=== PATIENT | female | born 2000 | race Hispanic/Latino ===

== ENCOUNTER 2021-05-19 01:26 | Emergency (ER) | payer OTHER ==
[2021-05-19] MEDS ORDERED: LIDOCAINE 1% W/EPI 1:100,000 MDV 20 ML VIAL ONE (02:43)
[2021-05-19] MEDS ORDERED: TETANUS & DIPHTHERIA TOX,ADULT 0.5 ML VIAL ONE (02:43)
--- NOTE | 2021-05-19 02:43 | EDPHYS ---
Physician Documentation [facility] Name: Junaid Ortiz Age: 20 yrs Sex: Female : 2000 Arrival Date: 05/19/2021 Time: 01:29 Bed 23 Private MD: ED Physician Nael Figueroa HPI: 05/19 01:50 This 20 yrs old Female presents to ER via Ambulatory with complaints of Arm cp Injury. 01:50 The patient or guardian complains of a laceration. The complaints affect the left cp tricep. 01:50 Context: resulted from broken glass. cp 01:50 Onset: The symptoms/episode began/occurred just prior to arrival. Treatment prior to cp arrival includes: no previous treatment. Associated signs and symptoms: The patient has no apparent associated signs or symptoms. 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 - Social history:: Smoking status: Reported history of juuling and/or vaping. ROS: 01:55 Constitutional: Negative for fever. cp 01:55 Skin: Positive for laceration(s), of the left tricep. 01:55 Neuro: Negative for numbness, weakness. 01:55 Psych: Negative for suicide gesture, suicidal ideation. 01:55 All other systems are negative. Exam: 02:00 Constitutional: The patient appears in no acute distress, alert, awake, non-toxic, well cp developed, well nourished. 02:00 Musculoskeletal/extremity: Extremities: noted in the left arm: There is no evidence of cp decreased ROM, Perfusion: the extremity is normally perfused throughout, the left arm Sensation intact. 02:00 Skin: injury, laceration(s), the wound is approximately 3.5 cm(s), of the left tricep, that can be described as clean, no foreign body, linear, with mild bleeding. Vital Signs: 01:41 BP 121 / 82; Pulse 72; Resp 16 S; Temp 98.4(O); Pulse Ox 100% on R/A; Weight 44.45 kg bb (R); Height 5 ft. 2 in. (157.48 cm) (R); Pain 0/10; 02:35 BP 117 / 70; Pulse 60; Resp 16; Temp 97.0; Pulse Ox 100% ; Pain 0/10; dc2 01:41 Body Mass Index 17.92 (44.45 kg, 157.48 cm) bb Laceration: 02:50 Wound Repair of 3.5cm ( 1.4in ) subcutaneous laceration to left tricep. Linear shaped.. cp Distal neuro/vascular/tendon intact. Anesthesia: Wound infiltrated with 4 mls of 1% lidocaine w/ Epi. Wound prep: Moderate cleansing by me, Wound irrigation by me. Skin closed with 1 4-0 Vicryl using running sutures and sterile technique. Dressed with Bacitracin, 4x4's. Patient tolerated well. MDM: 01:40 Patient medically screened. cp 02:42 Data reviewed: vital signs, nurses notes, and as a result, I will discharge patient. cp 02:42 Counseling: I had a detailed discussion with the patient and/or guardian regarding: the cp historical points, exam findings, and any diagnostic results supporting the discharge/admit diagnosis, to return to the emergency department if symptoms worsen or persist or if there are any questions or concerns that arise at home. Response to treatment: the patient's symptoms have markedly improved after treatment, and as a result, I will discharge patient. 05/19 01:43 Order name: Dressing - Wound; Complete Time: 02:50 cp 05/19 01:43 Order name: Gloves, Sterile; Complete Time: 02:25 cp 05/19 01:43 Order name: Setup Suture Tray; Complete Time: 02:25 cp Administered Medications: 02:15 Drug: Lidocaine-Epinephrine -1%: (1:100,000) 10 ml {Note: FOR PROVIDER AT BEDSIDE FOR dc2 LEFT ARM.} Volume: 20 ml; Route: Infiltration; 02:50 Follow up: Response: No adverse reaction dc2 02:34 Drug: Tetanus-Diphtheria Toxoid Adult 0.5 ml {Manager Port: [employer]. Exp: dc2 11/16/2022. Lot #: [id number]. } Route: IM; Site: right deltoid; 02:50 Follow up: Response: No adverse reaction dc2 Disposition: 02:45 Chart complete. cp 07:01 Co-signature as Attending Physician, Nael Figueroa MD. [facility] Disposition Summary: 05/19/21 02:42 Discharge Ordered Location: Home cp Problem: new cp Symptoms: have improved cp Condition: Stable cp Diagnosis - Laceration without foreign body of left upper arm, initial encounter cp Followup: cp - With: Private Physician - When: 7 - 10 days - Reason: Staple/Suture removal Discharge Instructions: - Discharge Summary Sheet cp - Laceration Care, Adult cp Forms: - Medication Reconciliation Form cp - Thank You Letter cp - Antibiotic Education cp - Prescription Opioid Use cp Signatures: Flavia Farley RN RN Jordin Mace PA PA cp Nael Figueroa MD MD [facility] Tanisha, FLORY Xiong RN dc2 Corrections: (The following items were deleted from the chart) 04:17 02:42 Laceration without foreign body of right upper arm, initial encounter cp cp 04:21 01:30 Skin: Positive for laceration(s), of the left tricep, cp cp 04:21 01:30 Constitutional: Negative for fever, cp cp 04:21 01:30 Neuro: Negative for numbness, weakness, cp cp 04:21 01:30 Psych: Negative for suicide gesture, suicidal ideation, cp cp 04:21 01:30 All other systems are negative, cp cp
--- NOTE | 2021-05-19 02:43 | ER ---
Nurse's Notes [facility] Name: Junaid Ortiz Age: 20 yrs Sex: Female : 2000 Arrival Date: 05/19/2021 Time: 01:29 Bed 23 Private MD: Diagnosis: Laceration without foreign body of left upper arm, initial encounter Presentation: 05/19 01:41 Chief complaint: Patient states: about an hour ago she cut her left upper arm on glass bb accidently while reaching through a broken window. Coronavirus screen: At this time, the client does not indicate any symptoms associated with coronavirus-19. Ebola Screen: No symptoms or risks identified at this time. Initial Sepsis Screen: Does the patient meet any 2 criteria? No. Patient's initial sepsis screen is negative. Does the patient have a suspected source of infection? No. Patient's initial sepsis screen is negative. Risk Assessment: Do you want to hurt yourself or someone else? Patient reports no desire to harm self or others. Onset of symptoms was May 19, 2021. 01:41 Method Of Arrival: Ambulatory bb 01:41 Acuity: ELLA 4 bb Triage Assessment: 01:45 Neuro: No deficits noted. dc2 01:45 General: Behavior is calm, cooperative. dc2 02:29 General: Appears in no apparent distress. comfortable, slender, well groomed. Pain: dc2 Denies pain. Derm: Skin Laceration to posterior left upper arm. Musculoskeletal: No deficits noted. Injury Description: Laceration sustained to left upper posterior arm. 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 - Social history:: Smoking status: Reported history of juuling and/or vaping. Screenin:45 Abuse screen: Denies threats or abuse. Denies injuries from another. Nutritional dc2 screening: No deficits noted. Tuberculosis screening: No symptoms or risk factors identified. Never had TB. Risk factors: None. 01:45 Fall Risk None identified. dc2 Assessment: 02:32 Reassessment: Patient and/or family updated on plan of care and expected duration. Pain dc2 level reassessed. Provider to bedside for suturing of laceration to left upper arm. Patient denies pain at this time. Vital Signs: 01:41 BP 121 / 82; Pulse 72; Resp 16 S; Temp 98.4(O); Pulse Ox 100% on R/A; Weight 44.45 kg bb (R); Height 5 ft. 2 in. (157.48 cm) (R); Pain 0/10; 02:35 BP 117 / 70; Pulse 60; Resp 16; Temp 97.0; Pulse Ox 100% ; Pain 0/10; dc2 01:41 Body Mass Index 17.92 (44.45 kg, 157.48 cm) bb ED Course: 01:29 Patient arrived in ED. ja2 01:38 Jordin Liu PA is PHCP. cp 01:38 Nael Figueroa MD is Attending Physician. cp 01:43 Triage completed. bb 01:44 Arm band placed on Patient placed in an exam room, on a stretcher, on pulse oximetry. bb 01:45 Patient has correct armband on for positive identification. Bed in low position. Call dc2 light in reach. Side rails up X 1. Pulse ox on. NIBP on. 01:45 Door closed. Lights dimmed. dc2 01:45 No provider procedures requiring assistance completed. dc2 02:14 Inga Garay RN is Primary Nurse. dc2 02:50 Patient did not have IV access during this emergency room visit. 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 Exp: dc2 11/16/2022. Lot #: [id number]. } Route: IM; Site: right deltoid; 02:50 Follow up: Response: No adverse reaction dc2 Outcome: 02:42 Discharge ordered by . cp 02:50 Discharged to home ambulatory. dc2 02:50 Condition: good 02:50 Discharge instructions given to patient, Instructed on discharge instructions, follow dc2 up and referral plans. Demonstrated understanding of instructions, follow-up care. 03:01 Patient left the ED. dc2 04:27 Patient left the ED. renee Signatures: Flavia Farley RN RN Jordin Mace PA PA cp Alexander, Jessica ja2 Charters, Denise, RN RN dc2
[2021-05-19 03:11] VITALS: O2SAT 100
[2021-05-19 04:32] VITALS: BP 117/70; TEMP 97
== END 2021-05-19 04:27 | disposition home or self-care (01) ==
LOC: ER 01:26
PROC: 0JQF0ZZ Repair Left Upper Arm Subcutaneous Tissue and Fascia, Open Approach (ICD-10-PCS; principal; 2021-05-19)
DX: S41.112A Laceration without foreign body of left upper arm, initial encounter (principal); W25.XXXA Contact with sharp glass, initial encounter; Z23 Encounter for immunization
CPT/HCPCS: 90471; 90714; 99283

== ENCOUNTER 2021-05-25 20:21 | Emergency (ER) | payer OTHER ==
--- NOTE | 2021-05-25 22:15 | ER ---
Nurse's Notes [facility] Name: Junaid Ortiz Age: 20 yrs Sex: Female : 2000 Arrival Date: 05/25/2021 Time: 20:24 Bed Waiting Private MD: Diagnosis: Suture removal left arm Presentation: 05/25 20:40 Chief complaint: Patient states: Pt was seen in ED about a week for Left upper arm vg1 laceration and was told to come back to get stitches removed. Coronavirus screen: Vaccine status: Patient reports being unvaccinated. Ebola Screen: Patient negative for fever greater than or equal to 101.5 degrees Fahrenheit, and additional compatible Ebola Virus Disease symptoms. Initial Sepsis Screen: Does the patient meet any 2 criteria? No. Patient's initial sepsis screen is negative. Does the patient have a suspected source of infection? No. Patient's initial sepsis screen is negative. Risk Assessment: Do you want to hurt yourself or someone else? Patient reports no desire to harm self or others. Onset of symptoms was May 18, 2021. 20:40 Method Of Arrival: Ambulatory vg1 20:40 Acuity: ELLA 4 vg1 Triage Assessment: 20:44 General: Appears in no apparent distress. comfortable, Behavior is calm, cooperative. vg1 Pain: Denies pain. Historical: - Allergies: 20:44 No Known Allergies; vg1 - Home Meds: 20:44 None [Active]; vg1 - PMHx: 20:44 Hypothyroidism; vg1 - PSHx: 20:44 None; vg1 - Immunization history:: Adult Immunizations up to date, Client reports having NOT received the Covid vaccine. - Social history:: Smoking status: Reported history of juuling and/or vaping. Assessment: 21:05 Reassessment: Stitches removed by Flavia RUTH, pt tolerated well. Site without swelling vg1 or discharge. 21:29 Reassessment: waiting for provider to d/c patient from system. vg1 Vital Signs: 20:40 BP 110 / 74; Pulse 64; Resp 16; Temp 98.2; Pulse Ox 100% ; Weight 44.45 kg; Height 5 vg1 ft. 2 in. (157.48 cm); Pain 0/10; 20:40 Body Mass Index 17.92 (44.45 kg, 157.48 cm) vg1 ED Course: 20:24 Patient arrived in ED. ja2 20:44 Triage completed. vg1 20:44 Arm band placed on. vg1 22:04 Karri Rae MD is Attending Physician. pkl 22:23 Jordin Liu PA is PHCP. cp Administered Medications: No medications were administered Outcome: 21:05 No charge visit due to suture removal. vg1 21:05 Discharged to home ambulatory. vg1 21:05 Condition: stable 22:14 Discharge ordered by . pkl 22:23 Patient left the ED. bb Signatures: Karri Rae MD MD pkFlavia Eisenberg, RN RN bb Jordin Liu PA PA cp Garcia, Victoria, RN RN 1 Jenny Umaña [facility]
--- NOTE | 2021-05-25 22:15 | EDPHYS ---
Physician Documentation [facility] Name: Junaid Ortiz Age: 20 yrs Sex: Female : 2000 Arrival Date: 05/25/2021 Time: 20:24 Bed Waiting Private MD: ED Physician Karri Rae HPI: 05/25 22:05 This 20 yrs old Female presents to ER via Ambulatory with complaints of STITCH pkl REMOVAL. 22:05 The patient has sutures on the left arm. pkl Historical: - Allergies: 20:44 No Known Allergies; vg1 - Home Meds: 20:44 None [Active]; vg1 - PMHx: 20:44 Hypothyroidism; vg1 - PSHx: 20:44 None; vg1 - Immunization history:: Adult Immunizations up to date, Client reports having NOT received the Covid vaccine. - Social history:: Smoking status: Reported history of juuling and/or vaping. ROS: 22:05 Eyes: Negative for injury, pain, redness, and discharge, ENT: Negative for injury, pkl pain, and discharge, Neck: Negative for injury, pain, and swelling, Cardiovascular: Negative for chest pain, palpitations, and edema, Respiratory: Negative for shortness of breath, cough, wheezing, and pleuritic chest pain, Abdomen/GI: Negative for abdominal pain, nausea, vomiting, diarrhea, and constipation, Back: Negative for injury and pain, : Negative for injury, bleeding, discharge, and swelling, Neuro: Negative for headache, weakness, numbness, tingling, and seizure. 22:05 MS/extremity: Positive for laceration, of the left arm. Wound healed. 22:05 Neuro: Negative for altered mental status. Exam: 22:05 Head/Face: Normocephalic, atraumatic. Eyes: Pupils equal round and reactive to light, pkl extra-ocular motions intact. Lids and lashes normal. Conjunctiva and sclera are non-icteric and not injected. Cornea within normal limits. Periorbital areas with no swelling, redness, or edema. ENT: Nares patent. No nasal discharge, no septal abnormalities noted. Tympanic membranes are normal and external auditory canals are clear. Oropharynx with no redness, swelling, or masses, exudates, or evidence of obstruction, uvula midline. Mucous membranes moist. Neck: Trachea midline, no thyromegaly or masses palpated, and no cervical lymphadenopathy. Supple, full range of motion without nuchal rigidity, or vertebral point tenderness. No Meningismus. Chest/axilla: Normal chest wall appearance and motion. Nontender with no deformity. No lesions are appreciated. Cardiovascular: Regular rate and rhythm with a normal S1 and S2. No gallops, murmurs, or rubs. Normal PMI, no JVD. No pulse deficits. Respiratory: Lungs have equal breath sounds bilaterally, clear to auscultation and percussion. No rales, rhonchi or wheezes noted. No increased work of breathing, no retractions or nasal flaring. Abdomen/GI: Soft, non-tender, with normal bowel sounds. No distension or tympany. No guarding or rebound. No evidence of tenderness throughout. Back: No spinal tenderness. No costovertebral tenderness. Full range of motion. Skin: Warm, dry with normal turgor. Normal color with no rashes, no lesions, and no evidence of cellulitis. Neuro: Awake and alert, GCS 15, oriented to person, place, time, and situation. Cranial nerves II-XII grossly intact. Motor strength 5/5 in all extremities. Sensory grossly intact. Cerebellar exam normal. Normal gait. 22:05 Musculoskeletal/extremity: Extremities: grossly normal except: noted in the left arm: laceration healed. Vital Signs: 20:40 BP 110 / 74; Pulse 64; Resp 16; Temp 98.2; Pulse Ox 100% ; Weight 44.45 kg; Height 5 vg1 ft. 2 in. (157.48 cm); Pain 0/10; 20:40 Body Mass Index 17.92 (44.45 kg, 157.48 cm) vg1 Procedures: 22:05 Suture/Staple removal: Removed running sutures, site appears well healed, Patient pkl tolerated well. MDM: 22:05 Data reviewed: vital signs, nurses notes. pkl 22:14 Patient medically screened. pkl Administered Medications: No medications were administered Disposition Summary: 05/25/21 22:14 Discharge Ordered Location: Home pkl Problem: new pkl Symptoms: have improved pkl Condition: Stable pkl Diagnosis - Suture removal left arm pkl Followup: pkl - With: Private Physician - When: 2 - 3 days - Reason: Re-evaluation by your physician Forms: - Medication Reconciliation Form pkl - Thank You Letter pkl - Antibiotic Education pkl - Prescription Opioid Use pkl Signatures: Karri Rae MD MD pkl Kelly Feng RN RN vg1
[2021-05-25 22:29] VITALS: BP 110/74; TEMP 98.2; O2SAT 100
== END 2021-05-25 22:23 | disposition home or self-care (01) ==
LOC: ER 20:21
DX: Z48.02 Encounter for removal of sutures (principal)

== ENCOUNTER → 2023-08-31 | Emergency (ER) | payer OTHER, SELFPAY ==
[~2023-08-31] MED LIST: DERMABOND SKIN ADHESIVE TOP ONE; TDAP (DIPHTH,PERTUSS(ACELL),TET VAC) 0.5 ML VIAL IMVAC ONE
--- NOTE | 2023-08-31 16:49 | EDPHYS ---
Physician Documentation [facility] Name: Junaid Ortiz Age: 22 yrs Sex: Female : 2000 Arrival Date: 08/31/2023 Time: 15:48 Bed 11 Private MD: ED Physician Jordin Satrr HPI: 08/31 16:43 This 22 yrs old Female presents to ER via Ambulatory with complaints of Finger snw Injury. 16:43 The patient or guardian reports a laceration, clean, 3 cm(s), simple. The complaints snw affect the right hand diffusely. Onset: The symptoms/episode began/occurred suddenly, today, and became persistent. Associated signs and symptoms: The patient has no apparent associated signs or symptoms. It is unknown whether or not the patient has had similar symptoms in the past. It is unknown whether or not the patient has recently seen a physician. Historical: - Allergies: 16:24 No Known Allergies; cm10 - PMHx: 16:24 Hypothyroidism; cm10 - Immunization history:: Adult Immunizations up to date, Last tetanus immunization: unknown. - Social history:: Smoking status: Reported history of juuling and/or vaping. ROS: 16:43 Constitutional: Negative for fever, chills, and weight loss, Eyes: Negative for injury, snw pain, redness, and discharge, ENT: Negative for injury, pain, and discharge, Neck: Negative for injury, pain, and swelling, Cardiovascular: Negative for chest pain, palpitations, and edema, Respiratory: Negative for shortness of breath, cough, wheezing, and pleuritic chest pain, Abdomen/GI: Negative for abdominal pain, nausea, vomiting, diarrhea, and constipation, Back: Negative for injury and pain, : Negative for injury, bleeding, discharge, and swelling, MS/Extremity: Negative for injury and deformity, Neuro: Negative for headache, weakness, numbness, tingling, and seizure, Psych: Negative for depression, anxiety, suicide ideation, homicidal ideation, and hallucinations, 16:43 Skin: Positive for laceration(s), of the palmar aspect of distal phalanx of right thumb, Exam: 16:42 Constitutional: This is a well developed, well nourished patient who is awake, alert, snw and in no acute distress. Head/Face: Normocephalic, atraumatic. Eyes: Pupils equal round and reactive to light, extra-ocular motions intact. Lids and lashes normal. Conjunctiva and sclera are non-icteric and not injected. Cornea within normal limits. Periorbital areas with no swelling, redness, or edema. ENT: Nares patent. No nasal discharge, no septal abnormalities noted. Tympanic membranes are normal and external auditory canals are clear. Oropharynx with no redness, swelling, or masses, exudates, or evidence of obstruction, uvula midline. Mucous membranes moist. Neck: Trachea midline, no thyromegaly or masses palpated, and no cervical lymphadenopathy. Supple, full range of motion without nuchal rigidity, or vertebral point tenderness. No Meningismus. Chest/axilla: Normal chest wall appearance and motion. Nontender with no deformity. No lesions are appreciated. Cardiovascular: Regular rate and rhythm with a normal S1 and S2. No gallops, murmurs, or rubs. Normal PMI, no JVD. No pulse deficits. Respiratory: Lungs have equal breath sounds bilaterally, clear to auscultation and percussion. No rales, rhonchi or wheezes noted. No increased work of breathing, no retractions or nasal flaring. Abdomen/GI: Soft, non-tender, with normal bowel sounds. No distension or tympany. No guarding or rebound. No evidence of tenderness throughout. Back: No spinal tenderness. No costovertebral tenderness. Full range of motion. MS/ Extremity: Pulses equal, no cyanosis. Neurovascular intact. Full, normal range of motion. Neuro: Awake and alert, GCS 15, oriented to person, place, time, and situation. Cranial nerves II-XII grossly intact. Motor strength 5/5 in all extremities. Sensory grossly intact. Cerebellar exam normal. Normal gait. Psych: Awake, alert, with orientation to person, place and time. Behavior, mood, and affect are within normal limits. 16:42 Skin: Appearance: normal except for affected area, injury, laceration(s), the wound is approximately 3 cm(s), with a depth of 1 cm(s), of the palmar aspect of distal phalanx of right thumb, Vital Signs: 16:23 BP 114 / 75; Pulse 68; Resp 16; Temp 98.2; Pulse Ox 100% on R/A; Weight 44.45 kg; cm10 Height 5 ft. 2 in. ; Pain 6/10; 16:23 Body Mass Index 17.92 (44.45 kg, 157.48 cm) cm10 16:23 Pain Scale: Adult cm10 MDM: 16:23 Patient medically screened. snw 16:46 Differential diagnosis: contusion, abrasion, laceration. Data reviewed: vital signs, snw nurses notes. I considered the following discharge prescriptions or medication management in the emergency department Medications were administered in the Emergency Department. See MAR. Counseling: I had a detailed discussion with the patient and/or guardian regarding the historical points, exam findings, and any diagnostic results supporting the discharge/admit diagnosis, the need for outpatient follow up, for definitive care, a family practitioner, to return to the emergency department if symptoms worsen or persist or if there are any questions or concerns that arise at home. Special discussion: Based on the history and exam findings, there is no indication for further emergent testing or inpatient evaluation. I discussed with the patient/guardian the need to see the primary care provider for further evaluation of the symptoms. 08/31 16:26 Order name: Wound Care; Complete Time: 17:01 snw 08/31 16:26 Order name: Dermabond; Complete Time: 17:10 snw Administered Medications: 17:01 Drug: Boostrix Tdap IM 0.5 ml IM once; as a single dose Route: IM; Site: right deltoid; hb Disposition Summary: 08/31/23 16:48 Discharge Ordered Notes: Location: Home snw Condition: Stable snw Diagnosis - Laceration without foreign body of right thumb without damage to nail, initial snw encounter Followup: snw - With: Emergency Department - When: As needed - Reason: Worsening of condition Followup: snw - With: Private Physician - When: 1 week - Reason: Recheck today's complaints, Continuance of care, Re-evaluation by your physician Discharge Instructions: - Discharge Summary Sheet snw - Tissue Adhesive Wound Care snw - Laceration Care, Adult snw Forms: - Medication Reconciliation Form snw - Thank You Letter snw - Antibiotic Education snw - Prescription Opioid Use snw - Patient Portal Instructions snw - Leadership Thank You Letter snw - Work release form Signatures: Haritha Blas FNP-C [employer] Bri Mai RN RN hb Fang Telles RN RN cm10 Corrections: (The following items were deleted from the chart) 16:25 16:24 [place] Meds: None; cm10 cm10
--- NOTE | 2023-08-31 16:49 | ER ---
Nurse's Notes [facility] Name: Junaid Ortiz Age: 22 yrs Sex: Female : 2000 Arrival Date: 08/31/2023 Time: 15:48 Bed 11 Private MD: Diagnosis: Laceration without foreign body of right thumb without damage to nail, initial encounter Presentation: 08/31 16:23 Chief complaint: Patient states: Cut thumb on right hand with knife. No bleeding noted cm10 at this time. Coronavirus screen: Vaccine status: Patient reports receiving the 1st dose of the Covid vaccine. Client denies travel out of the [place] in the last 14 days. Ebola Screen: Patient denies travel to an Ebola-affected area in the 21 days before illness onset. No symptoms or risks identified at this time. Initial Sepsis Screen: Does the patient meet any 2 criteria? No. Patient's initial sepsis screen is negative. Does the patient have a suspected source of infection? No. Patient's initial sepsis screen is negative. Risk Assessment: Do you want to hurt yourself or someone else? Patient reports no desire to harm self or others. Onset of symptoms was August 31, 2023. 16:23 Method Of Arrival: Ambulatory cm10 16:23 Acuity: ELLA 4 cm10 Triage Assessment: 16:25 General: Appears in no apparent distress. comfortable, Behavior is calm, cooperative. cm10 Pain: Complains of pain in Thumb on right hand Pain currently is 6 out of 10 on a pain scale. Quality of pain is described as stinging. Neuro: No deficits noted. Level of Consciousness is awake, alert, obeys commands, Oriented to person, place, time, situation. Cardiovascular: No deficits noted. Patient's skin is warm and dry. Respiratory: No deficits noted. Airway is patent Respiratory effort is even, unlabored, Respiratory pattern is regular, symmetrical. GI: No deficits noted. No signs and/or symptoms were reported involving the gastrointestinal system. : No deficits noted. No signs and/or symptoms were reported regarding the genitourinary system. Derm: No deficits noted. No signs and/or symptoms reported regarding the dermatologic system. Skin is intact, Skin is pink, warm \T\ dry. Musculoskeletal: No deficits noted. No signs and/or symptoms reported regarding the musculoskeletal system. Range of motion: intact in all extremities. Injury Description: Laceration sustained to palmar aspect of distal phalanx of right thumb no active bleeding noted at this time. Historical: - Allergies: 16:24 No Known Allergies; cm10 - PMHx: 16:24 Hypothyroidism; cm10 - Immunization history:: Adult Immunizations up to date, Last tetanus immunization: unknown. - Social history:: Smoking status: Reported history of juuling and/or vaping. Screenin:26 [facility] ED Fall Risk Assessment (Adult) History of falling in the last 3 months, cm10 including since admission No falls in past 3 months (0 pts) Confusion or Disorientation No (0 pts) Intoxicated or Sedated No (0 pts) Impaired Gait No (0 pts) Mobility Assist Device Used No (0 pt) Altered Elimination No (0 pt) Score/Fall Risk Level 0 - 2 = Low Risk Oriented to surroundings, Maintained a safe environment, Hourly rounding (assess needs \T\ fall precautionary measures) done. Abuse screen: Denies threats or abuse. Denies injuries from another. Nutritional screening: No deficits noted. Tuberculosis screening: No symptoms or risk factors identified. Assessment: 17:02 Reassessment: Patient appears in no apparent distress at this time. Patient and/or hb family updated on plan of care and expected duration. Pain level reassessed. Patient is alert, oriented x 3, equal unlabored respirations, skin warm/dry/pink. Vital Signs: 16:23 BP 114 / 75; Pulse 68; Resp 16; Temp 98.2; Pulse Ox 100% on R/A; Weight 44.45 kg; cm10 Height 5 ft. 2 in. ; Pain 6/10; 16:23 Body Mass Index 17.92 (44.45 kg, 157.48 cm) cm10 16:23 Pain Scale: Adult cm10 ED Course: 15:50 Patient arrived in ED. ts1 15:56 [facility] Bl[facility]C [facility]. snw 15:56 Jordin Starr MD is Attending Physician. snw 16:24 Triage completed. cm10 16:25 Arm band placed on Patient placed in waiting room. cm10 16:26 Patient has correct armband on for positive identification. Provided Education on: ER cm10 process and procedures.. 17:02 No provider procedures requiring assistance completed. Patient did not have IV access hb during this emergency room visit. Wound care: to laceration located on palmar aspect of distal phalanx of right thumb was cleaned with Hibiclens, Patient tolerated well. Administered Medications: 17:01 Drug: Boostrix Tdap IM 0.5 ml IM once; as a single dose Route: IM; Site: right deltoid; hb Medication: 17:02 Vaccine Information Statement (VIS) provided today. Questions and/or concerns hb addressed. VIS edition date: August 31, 2023. Outcome: 16:48 Discharge ordered by . snw 17:02 Discharged to home ambulatory, with family, hb 17:02 Condition: stable 17:02 Discharge instructions given to patient, Instructed on discharge instructions, follow up and referral plans. medication usage, wound care, Demonstrated understanding of instructions, follow-up care, medications, 17:10 Patient left the ED. hb 17:16 Patient left the ED. hb Signatures: Haritha Blas, [employer]-[facility] [employer] [facility]-Csnw Bri Mai RN RN Florecita Watson PAS PAS ts1 Fang Telles RN RN cm10 Corrections: (The following items were deleted from the chart) 16:25 16:24 Home Meds: None; cm10 cm10
[2023-08-31 17:48] VITALS: BP 114/75; TEMP 98.2; O2SAT 100
== END ==
LOC: ER 15:48
PROC: 0HQFXZZ Repair Right Hand Skin, External Approach (ICD-10-PCS; principal; 2023-08-31)
DX: S61.011A Laceration without foreign body of right thumb without damage to nail, initial encounter (principal)
CPT/HCPCS: 96372; 99284